=== PATIENT | male | born 1995 | race African-American/Black ===

== ENCOUNTER 2018-02-05 13:39 | Emergency (ER) | payer MEDICAID ==
[~2018-02-05] VITALS: Ht 182.9 cm; Wt 76.0 kg
[2018-02-05 13:54] VITALS: BP 140/69
[2018-02-05] MEDS ORDERED: PERM60CR19 TP (14:52)
== END 2018-02-05 15:12 | disposition home or self-care (01) ==
LOC: ER 13:40
DX: B86 Scabies (principal); F17.200 Nicotine dependence, unspecified, uncomplicated; Z79.899 Other long term (current) drug therapy
CPT/HCPCS: 99282